=== PATIENT | female | born 1945 | race Caucasian/White ===

== ENCOUNTER 2016-12-01 03:38 | Emergency (ER) | payer MEDICARE, BC ==
[~2016-12-01] VITALS: Ht 151.1 cm; Wt 40.6 kg
[2016-12-01 03:38] VITALS: Ht 151.1 cm; Wt 40.6 kg
[~2016-12-01 03:38] MED LIST: ASPI81TA2 PO; DOCU-168 PO; HYDR-4246 PO; IBUP-1724 PO; LISI5TAB PO; OMEP40CA52 PO; [UNRECOGNIZED DRUG - CODE] PO
--- NOTE | 2016-12-01 04:00 | NUR ---
TO XRAY VIA CART
--- NOTE | 2016-12-01 04:15 | NUR ---
RETURN FROM XRAY
--- NOTE | 2016-12-01 04:20 | ERPDOC ---
Departure Disposition Decision Date: Dec 01, 2016 Disposition Decision Time: 04:57 Disposition: 01 DISCHARGED HOME, SELF-CARE Impression Impression Impression: Primary Impression: Neuropraxia of left lower extremity Severity: Moderate Condition: Improved Seen By: Physician only Referrals: HORTENSIA GIPSON MD (Family) 1 Week Patient Instructions: Peripheral Neuropathy (ED) Problems/Meds/Labs Reviewed?: Yes Medications reviewed and manag: Yes Additional Instructions: You have pinched a nerve in your leg. This will get better with time. Take naproxen and tylenol for pain. Ice or heat may help. Follow up with your doctor in the next week. Follow up care ordered?: Yes Mental Status: Alert, Oriented HPI General Chief Complaint: Lower Extremity Injury Stated Complaint: FALL Time Seen by Provider: 03:52 Source: patient Exam Limitations: no limitations HPI Knee Initial Comments 71yo woman presented to the ER tonight by EMS for knee pain. Pt fell at home tonight; has had a dull ache in her knee, behind her fibula, ever since. Pt has a h/o 'nerve damage' in her legs; this pain is new since the fall. Pt has not taken anything for it. Occurred At: home Onset: Rapid Duration: 6-12 hrs Pain Scale: Now & Worst: 6/10 Severity: moderate Method of Injury: fell Modifying Factors: IMPROVES WITH: immobilization, WORSENES WITH: jarring, movement, weight bearing Allergies: Coded Allergies: Sulfa (Sulfonamide Antibiotics) (Verified Allergy, Unknown, 07/06/15) UNKNOWN REACTION Past History Patient Surgical History cysto Past Medical History Metabolic: hypertension Respiratory: COPD Family History Family PMH: FOUND: [place], diabetes, hypertension Vaccines Hx Influenza Vaccination: Yes (2013) Hx Pneumococcal Vaccination: No Social History Does patient use chewing tobac: No # of Packs/Tins per Day: 1 # of Years: 50 Review of Systems Musculoskeletal General: pain All other Systems All Other Systems: Reviewed and Negative Exam General General Nourishment: well nourished, well developed, appears stated age, no acute distress, adult, cachectic General Body Habitus: well groomed Vital Signs: RN Vital Signs have been reviewed: Yes, Temperature: 97.7, Source : Oral, Heart Rate: 85, Respiratory Rate: 20, BP: 164/90, Pulse Oximetry: 98 Height (Feet): 4 Height (Inches): 11.50 [place] Knee Knee : Knee: Left Inspection: NOT FOUND: discoloration, erythema, pallor, swelling Palpation: warm, NOT FOUND: tender lat. joint line, tender med. joint line, tender patella Stability: A/P cruciate, MCL intact, anterior drawer sign, posterior drawer sign ROM: extension to 180 degrees, flexion to 0 degrees Neuro: patellar tendon reflex, soft touch intact, strength Posterior Tibial pulse: 2+ Dorsalis Pedis pulse: 2+ Neurologic RN Documented GCS Eye Opening: Verbal: Motor: Total: Supervisory Exam Head: atraumatic Eyes: PERRL Nares: no exudate Neck: trachea midline Chest: symmetric Abdomen: non-distended Musculoskeletal: no deformity or atrophy Neurological: no abnormal movements Skin: pink, dry Psychological: alert, appropriate Differential Diagnoses Considering: Cartilage Tear, Contusion, Dislocation, Fracture, Meniscal Injury , Sprain, Strain, Tibial Plateau Fracture Progress Results/Orders Orders Medications Current ED Medications Ketorolac Tromethamine (Toradol) 30 mg O ONCE IM Last administered on t 04:30; Start 12/01/16 at 04:30; Stop 12/01/16 at 04:31; Status DC Progress Progress Pt with sx classic for neuropraxia of peroneal nerve. Pt is very anxious and very deaf. Attempts to reassure pt and discuss dx, prognosis, and tx are hampered by pts anxiety, mentation, hearing and expectations. Pts sx improved with toradol. Pt wants to go home. Xray Xray : Xray: Knee L Interpretation: Normal, Interpreted by TAYLOR Campuzano DO Dec 01, 2016 04:20 Progress Progress Pt with sx classic for neuropraxia of peroneal nerve. Pt is very anxious and very deaf. Attempts to reassure pt and discuss dx, prognosis, and tx are hampered by pts anxiety, mentation, hearing and expectations. Pts sx improved with toradol. Pt wants to go home. Xray Xray : Xray: Knee L Interpretation: Normal, Interpreted by TAYLOR Campuzano DO Dec 01, 2016 04:20
[2016-12-01] MEDS ORDERED: KETOROLAC 30mg/ml INJECTION IM ONE (04:30)
[2016-12-01 05:10] VITALS: BP 144/81; PULSE 83; RESP 18; TEMP 98.8; O2SAT 98
--- NOTE | 2016-12-01 05:10 | NUR ---
DEPART PT IS GIVEN DISMISSAL INSTRUCTIONS WITH VERBAL UNDERSTANDING. PT DOESNT HAVE HER GLASSES. INSTRUCTED HER TO READ THE HIGHLIGHTED INFORMATION WHEN SHE GETS HOME. PT GETS INTO THE W/C. PT IS TAKEN TO THE ED EXIT VIA W/C.
--- NOTE | 2016-12-01 07:57 | DI ---
Indication: ITS.REASON: Pain after fall PROCEDURE: KNEE LEFT 3 VIEWS: Encounter: Initial Comparison: None Findings: There is no acute fracture, dislocation or malalignment identified. Small joint effusion. Impression: No acute osseous abnormality. If there is continued pain, CT could be performed for further evaluation. .
== END 2016-12-01 05:10 | disposition home or self-care (01) ==
LOC: ED 03:38
DX: S84.12XA Injury of peroneal nerve at lower leg level, left leg, initial encounter (principal); W19.XXXA Unspecified fall, initial encounter; Y93.9 Activity, unspecified; Y92.009 Unspecified place in unspecified non-institutional (private) residence as the place of occurrence of the external cause; Y99.8 Other external cause status
CPT/HCPCS: 73562; 96372; 99283; J1885